=== PATIENT | female | born 1955 | race Caucasian/White ===

== ENCOUNTER 2018-03-15 12:51 | Inpatient (IN) ==
[2018-03-15 14:12] LABS: Basophils % 0.3 % (0.0-0.8); Eosinophils # 0.1 10*3/uL (0.0-0.87); Eosinophils % 0.9 % (0.00-10.9); Hematocrit 48.3 VOL% (35.7-47.0); Hemoglobin 16.3 GM/DL (12.0-16.0); Immature Granulocytes % 0.5 %; Immature Granulocytes Absolute 0.03 #; Lymphocytes # 1.2 10*3/uL (1.4-4.0); Lymphocytes % 18.3 % (21.3-54.2); Mean Corpuscular HGB Conc 33.7 GM/DL (32-36); Mean Corpuscular Hemoglobin 37 PG (27-34); Mean Platelet Volume 10.8 FL (9.6-12.0); Monocytes # 0.4 10*3/uL (0.11-0.8); Monocytes % 5.3 % (1.7-12.7); Neutrophils % 74.7 % (38.7-73.9); Platelet Count 130 T/CUMM (130-400); Red Blood Count 4.43 MC/CUMM (3.8-5.5); Red Cell Distribution Width 16.9 % (9.3-17.3); White Blood Count 6.6 T/CUMM (4-12)
[2018-03-15 14:38] LABS: Albumin 3.7 G/DL (3.4-5.0); Osmolality,Calculated 282.4 MOS/KG (273-304); Potassium 4.4 MMOL/L (3.5-5.1); Total Protein 7.1 G/DL (6.4-8.3)
[2018-03-15] MEDS ORDERED: ACETAMINOPHEN 325 MG TABLET PO PRN (15:52)
[2018-03-15] MEDS ORDERED: ONDANSETRON 4 MG/2 ML VIAL IV PRN (15:52)
[2018-03-15] MEDS ORDERED: NITROGLYCERIN SL 0.4 MG TABLET SL PRN (15:59)
[2018-03-15] MEDS ORDERED: ALBUTEROL 2.5 MG/3 ML NEB RESP TX PRN ×2 (15:59→16:24)
[2018-03-15] MEDS ORDERED: ENOXAPARIN 40 MG/0.4 ML SYRINGE SUBCUT SCH (16:00)
[2018-03-15] MEDS ORDERED: LEVOFLOXACIN INJ 500 MG in PREMIX 1 EACH IV SCH (16:00)
[2018-03-15 16:38] LABS: Apearance,Urine CLEAR (Clear); Bacteria,Urine Occasional /HPF (Few); Bilirubin,Urine Negative (Negative); Blood, Urine Small mg/dL (Negative); Glucose,Urine (UA) Negative (Negative); Hyaline Casts,Urine 1 /LPF (0-3); Ketones,Urine Negative (Negative); Nitrite,Urine Negative (Negative); Protein,Urine Negative; RBC,Urine <1 /HPF (0-4); Urine Color Straw (Yellow); Urine Specific Gravity 1.004 (1.001-1.035); Urine Urobilinogen < 2.0 EU/DL (0.2-1.0)
[2018-03-15] MEDS: ALBUTEROL/IPRATROPIUM 3 ML NEB RESP TX SCH ×4 (16:54→23:16)
[2018-03-15] MEDS: methylPREDNISolone SOD SUC 40 MG/1 ML VIAL IV SCH (17:16)
[2018-03-15 17:39] LABS: ABG Base Excess 2.5 MMOL/L (-2.5-2.5); ABG HCO3 26.4 MMOL/L (20-26); ABG Oxygen Saturation 90.4 % (95-100); ABG PH 7.415 (7.35-7.45); ABG PO2 61.2 MM HG (80-95)
[2018-03-15] MEDS: FUROSEMIDE 40 MG/4 ML VIAL IV SCH (18:44)
[2018-03-15] MEDS ORDERED: ALBUTEROL 2.5 MG/3 ML NEB RESP TX SCH (19:00)
[2018-03-15] MEDS: GABAPENTIN 600 MG TABLET PO SCH (20:46)
[2018-03-15] MEDS: MEGESTROL 40 MG TABLET PO SCH (20:47)
[2018-03-15] MEDS: ISOSORBIDE MONONITRATE 60 MG TABLET PO SCH (20:47)
[2018-03-16] MEDS: methylPREDNISolone SOD SUC 40 MG/1 ML VIAL IV SCH ×4 (00:15→23:27)
[2018-03-16] MEDS: ALBUTEROL/IPRATROPIUM 3 ML NEB RESP TX SCH ×6 (01:27→19:21)
[2018-03-16 04:58] LABS: Hematocrit 49.9 VOL% (35.7-47.0); Hemoglobin 16.2 GM/DL (12.0-16.0); Immature Granulocytes % 0.9 %; Immature Granulocytes Absolute 0.03 #; Lymphocytes # 0.2 10*3/uL (1.4-4.0); Lymphocytes % 7.6 % (21.3-54.2); Mean Corpuscular HGB Conc 32.5 GM/DL (32-36); Mean Corpuscular Hemoglobin 36 PG (27-34); Mean Corpuscular Volume 109.9 FL (87-102); Mean Platelet Volume 11.4 FL (9.6-12.0); Monocytes % 0.9 % (1.7-12.7); Neutrophils # 2.9 10*3/uL (1.4-7.4); Neutrophils % 90.6 % (38.7-73.9); Platelet Count 130 T/CUMM (130-400); Red Blood Count 4.54 MC/CUMM (3.8-5.5); Red Cell Distribution Width 16.9 % (9.3-17.3); White Blood Count 3.2 T/CUMM (4-12)
[2018-03-16 05:16] LABS: ABG Base Excess 1.8 MMOL/L (-2.5-2.5); ABG HCO3 26.4 MMOL/L (20-26); ABG Oxygen Saturation 87.7 % (95-100); ABG PCO2 41.6 MM HG (35-48); ABG PH 7.421 (7.35-7.45); ABG PO2 58.5 MM HG (80-95); ABG TCO2 27.7 MMOL/L (23-27)
[2018-03-16 05:26] LABS: Calcium 9.5 MG/DL (8.5-10.1); Osmolality,Calculated 286.5 MOS/KG (273-304); Potassium 3.8 MMOL/L (3.5-5.1)
[2018-03-16 05:36] LABS: Band Neutrophils 1 % (0-10); Lymphocytes 7 % (20-55); Segmented Neutrophils 91 % (50-85); Total Cells Counted 100
[2018-03-16 05:37] LABS: Macrocytosis 1+; Platelet Estimate Adequate
[2018-03-16] MEDS: ISOSORBIDE MONONITRATE 60 MG TABLET PO SCH ×2 (08:32→20:05)
[2018-03-16] MEDS: ASPIRIN EC 81 MG TABLET PO SCH (08:32)
[2018-03-16] MEDS: GABAPENTIN 600 MG TABLET PO SCH ×3 (08:33→20:03)
[2018-03-16] MEDS: PANTOPRAZOLE 40 MG TABLET PO SCH (08:34)
[2018-03-16] MEDS: POTASSIUM CHLORIDE 20 MEQ TABLET PO SCH (08:34)
[2018-03-16] MEDS: MEGESTROL 40 MG TABLET PO SCH ×2 (08:35→20:03)
[2018-03-16] MEDS: THEOPHYLLINE ER (24 HR) 200 MG CAPSULE PO SCH (08:35)
[2018-03-16] MEDS: CLOPIDOGREL 75 MG TABLET PO SCH (08:35)
[2018-03-16] MEDS: FUROSEMIDE 40 MG/4 ML VIAL IV SCH ×2 (08:36→15:04)
[2018-03-16] MEDS: DOXYCYCLINE HYCLATE 100 MG CAPSULE PO SCH (09:49)
[2018-03-16] MEDS ORDERED: LEVOFLOXACIN INJ 250 MG in PREMIX 1 EACH IV SCH (16:30)
[2018-03-17] MEDS: ALBUTEROL/IPRATROPIUM 3 ML NEB RESP TX SCH ×4 (01:58→19:19)
[2018-03-17 05:49] LABS: Basophils % 0.1 % (0.0-0.8); Hematocrit 46.7 VOL% (35.7-47.0); Hemoglobin 15.2 GM/DL (12.0-16.0); Immature Granulocytes % 0.8 %; Immature Granulocytes Absolute 0.07 #; Lymphocytes # 0.5 10*3/uL (1.4-4.0); Lymphocytes % 5.2 % (21.3-54.2); Mean Corpuscular HGB Conc 32.5 GM/DL (32-36); Mean Corpuscular Hemoglobin 35 PG (27-34); Mean Corpuscular Volume 108.9 FL (87-102); Mean Platelet Volume 11.1 FL (9.6-12.0); Monocytes # 0.2 10*3/uL (0.11-0.8); Monocytes % 2.4 % (1.7-12.7); Neutrophils # 8.5 10*3/uL (1.4-7.4); Neutrophils % 91.5 % (38.7-73.9); Platelet Count 133 T/CUMM (130-400); Red Blood Count 4.29 MC/CUMM (3.8-5.5); Red Cell Distribution Width 16.9 % (9.3-17.3); White Blood Count 9.3 T/CUMM (4-12)
[2018-03-17 06:22] LABS: Lymphocytes 1 % (20-55); Platelet Estimate Adequate; Polychromasia Few; Segmented Neutrophils 96 % (50-85); Total Cells Counted 100
[2018-03-17 06:23] LABS: Calcium 9.5 MG/DL (8.5-10.1); Potassium 4.5 MMOL/L (3.5-5.1)
[2018-03-17] MEDS: DOXYCYCLINE HYCLATE 100 MG CAPSULE PO SCH (10:50)
[2018-03-17] MEDS: POTASSIUM CHLORIDE 20 MEQ TABLET PO SCH (10:50)
[2018-03-17] MEDS: CLOPIDOGREL 75 MG TABLET PO SCH (10:50)
[2018-03-17] MEDS: ISOSORBIDE MONONITRATE 60 MG TABLET PO SCH ×2 (10:51→22:32)
[2018-03-17] MEDS: MEGESTROL 40 MG TABLET PO SCH ×2 (10:51→21:15)
[2018-03-17] MEDS: PANTOPRAZOLE 40 MG TABLET PO SCH (10:51)
[2018-03-17] MEDS: predniSONE 20 MG TABLET PO SCH (10:51)
[2018-03-17] MEDS: THEOPHYLLINE ER (24 HR) 200 MG CAPSULE PO SCH (10:51)
[2018-03-17] MEDS: GABAPENTIN 600 MG TABLET PO SCH ×3 (10:51→21:15)
[2018-03-17] MEDS: ASPIRIN EC 81 MG TABLET PO SCH (10:51)
[2018-03-17] MEDS: FUROSEMIDE 80 MG TABLET PO SCH ×3 (11:02→18:14)
[2018-03-17] MEDS: methylPREDNISolone SOD SUC 40 MG/1 ML VIAL IV SCH (11:33)
[2018-03-17] MEDS: FUROSEMIDE 40 MG/4 ML VIAL IV SCH (11:33)
[2018-03-18] MEDS: ALBUTEROL/IPRATROPIUM 3 ML NEB RESP TX SCH ×4 (01:28→19:25)
[2018-03-18] MEDS ORDERED: fentaNYL 75 MCG/HR PATCH TRANSDERM SCH (09:00)
[2018-03-18] MEDS: DOXYCYCLINE HYCLATE 100 MG CAPSULE PO SCH (09:59)
[2018-03-18] MEDS: PANTOPRAZOLE 40 MG TABLET PO SCH (09:59)
[2018-03-18] MEDS: predniSONE 20 MG TABLET PO SCH (09:59)
[2018-03-18] MEDS: GABAPENTIN 600 MG TABLET PO SCH ×3 (09:59→20:43)
[2018-03-18] MEDS: CLOPIDOGREL 75 MG TABLET PO SCH (09:59)
[2018-03-18] MEDS: FUROSEMIDE 80 MG TABLET PO SCH ×2 (09:59→17:47)
[2018-03-18] MEDS: ISOSORBIDE MONONITRATE 60 MG TABLET PO SCH ×2 (09:59→20:44)
[2018-03-18] MEDS: POTASSIUM CHLORIDE 20 MEQ TABLET PO SCH (10:00)
[2018-03-18] MEDS: THEOPHYLLINE ER (24 HR) 200 MG CAPSULE PO SCH (10:00)
[2018-03-18] MEDS: ASPIRIN EC 81 MG TABLET PO SCH (10:00)
[2018-03-18] MEDS: MEGESTROL 40 MG TABLET PO SCH ×2 (10:00→20:44)
[2018-03-18] MEDS: BUDESONIDE/FORMOTEROL 160-4.5 INHALER 6 GM INH SCH ×2 (10:04→20:45)
[2018-03-18] MEDS: DOCUSATE/SENNA 50-8.6 MG TABLET PO PRN (13:11)
[2018-03-19] MEDS: ALBUTEROL/IPRATROPIUM 3 ML NEB RESP TX SCH ×4 (01:45→19:28)
[2018-03-19 04:22] LABS: Basophils % 0.1 % (0.0-0.8); Hematocrit 49.9 VOL% (35.7-47.0); Hemoglobin 16.4 GM/DL (12.0-16.0); Immature Granulocytes % 0.6 %; Immature Granulocytes Absolute 0.05 #; Lymphocytes # 1.1 10*3/uL (1.4-4.0); Lymphocytes % 14.4 % (21.3-54.2); Mean Corpuscular HGB Conc 32.9 GM/DL (32-36); Mean Corpuscular Hemoglobin 36 PG (27-34); Mean Corpuscular Volume 109.2 FL (87-102); Mean Platelet Volume 10.9 FL (9.6-12.0); Monocytes # 0.5 10*3/uL (0.11-0.8); Monocytes % 5.8 % (1.7-12.7); Neutrophils # 6.2 10*3/uL (1.4-7.4); Neutrophils % 79.1 % (38.7-73.9); Platelet Count 129 T/CUMM (130-400); Red Blood Count 4.57 MC/CUMM (3.8-5.5); Red Cell Distribution Width 16.9 % (9.3-17.3); White Blood Count 7.8 T/CUMM (4-12)
[2018-03-19 04:47] LABS: Calcium 9.3 MG/DL (8.5-10.1); Osmolality,Calculated 289.8 MOS/KG (273-304); Potassium 4.1 MMOL/L (3.5-5.1)
[2018-03-19] MEDS: LACTULOSE 20 GM/30 ML UDCUP PO PRN (08:52)
[2018-03-19] MEDS: THEOPHYLLINE ER (24 HR) 200 MG CAPSULE PO SCH (08:52)
[2018-03-19] MEDS: MEGESTROL 40 MG TABLET PO SCH ×2 (08:52→21:03)
[2018-03-19] MEDS: CLOPIDOGREL 75 MG TABLET PO SCH (08:52)
[2018-03-19] MEDS: DOXYCYCLINE HYCLATE 100 MG CAPSULE PO SCH (08:52)
[2018-03-19] MEDS: GABAPENTIN 600 MG TABLET PO SCH ×3 (08:53→21:03)
[2018-03-19] MEDS: POTASSIUM CHLORIDE 20 MEQ TABLET PO SCH (08:53)
[2018-03-19] MEDS: DOCUSATE/SENNA 50-8.6 MG TABLET PO PRN (08:53)
[2018-03-19] MEDS: FUROSEMIDE 80 MG TABLET PO SCH ×2 (08:53→15:38)
[2018-03-19] MEDS: PANTOPRAZOLE 40 MG TABLET PO SCH (08:53)
[2018-03-19] MEDS: ISOSORBIDE MONONITRATE 60 MG TABLET PO SCH ×2 (08:53→21:03)
[2018-03-19] MEDS: ASPIRIN EC 81 MG TABLET PO SCH (08:54)
[2018-03-19] MEDS: methylPREDNISolone SOD SUC 40 MG/1 ML VIAL IV SCH ×2 (08:54→21:04)
[2018-03-19] MEDS: BUDESONIDE/FORMOTEROL 160-4.5 INHALER 6 GM INH SCH ×2 (15:38→21:08)
[2018-03-20] MEDS: ALBUTEROL/IPRATROPIUM 3 ML NEB RESP TX SCH ×2 (00:36→07:10)
[2018-03-20] MEDS: LACTULOSE 20 GM/30 ML UDCUP PO PRN (08:37)
[2018-03-20] MEDS: PANTOPRAZOLE 40 MG TABLET PO SCH (08:38)
[2018-03-20] MEDS: DOXYCYCLINE HYCLATE 100 MG CAPSULE PO SCH (08:38)
[2018-03-20] MEDS: THEOPHYLLINE ER (24 HR) 200 MG CAPSULE PO SCH (08:38)
[2018-03-20] MEDS: GABAPENTIN 600 MG TABLET PO SCH (08:38)
[2018-03-20] MEDS: POTASSIUM CHLORIDE 20 MEQ TABLET PO SCH (08:38)
[2018-03-20] MEDS: MEGESTROL 40 MG TABLET PO SCH (08:39)
[2018-03-20] MEDS: ISOSORBIDE MONONITRATE 60 MG TABLET PO SCH (08:39)
[2018-03-20] MEDS: CLOPIDOGREL 75 MG TABLET PO SCH (08:39)
[2018-03-20] MEDS: ASPIRIN EC 81 MG TABLET PO SCH (08:39)
[2018-03-20] MEDS: methylPREDNISolone SOD SUC 40 MG/1 ML VIAL IV SCH (08:41)
[2018-03-20] MEDS: FUROSEMIDE 80 MG TABLET PO SCH (08:41)
[2018-03-20] MEDS: BUDESONIDE/FORMOTEROL 160-4.5 INHALER 6 GM INH SCH (08:45)
[2018-03-20 13:07] VITALS: BP 124/60
== END 2018-03-20 14:38 | disposition hospice, home (50) | DRG 133 ==
LOC: EDBD → EDUNIT# → N.ED 12:51 → N.EDINP 15:52 → SUATTDRO 15:52 → N.ICU 17:03 → N.5E 03-16 12:29
PROVIDERS: ADMIT Internal Medicine Geriatric Medicine; ATTEND Internal Medicine

== ENCOUNTER 2018-08-19 16:49 | Inpatient (IN) ==
[2018-08-19] MEDS ORDERED: NOREPINEPHRINE 4 MG/4 ML VIAL IV ONE (20:35)
[2018-08-19] MEDS ORDERED: PROPOFOL 1,000 MG/100 ML BOTTLE IV ONE (20:36)
[2018-08-19] MEDS: NOREPINEPHRINE 8 MG in SODIUM CHLORIDE 0.9% 242 ML IV PRN (20:57)
[2018-08-19 21:12] LABS: Basophils # 0.1 10*3/uL (0.0-0.2); Basophils % 0.5 % (0.0-0.8); Eosinophils % 0.1 % (0.00-10.9); Hematocrit 47.9 VOL% (35.7-47.0); Immature Granulocytes % 0.8 %; Immature Granulocytes Absolute 0.08 #; Lymphocytes # 1.8 10*3/uL (1.4-4.0); Lymphocytes % 17.5 % (21.3-54.2); Mean Corpuscular HGB Conc 31.3 GM/DL (32-36); Mean Corpuscular Hemoglobin 34 PG (27-34); Mean Corpuscular Volume 108.9 FL (87-102); Mean Platelet Volume 10.9 FL (9.6-12.0); Monocytes # 0.7 10*3/uL (0.11-0.8); Monocytes % 6.9 % (1.7-12.7); NRBC # 0.03 10*3/uL; Neutrophils # 7.8 10*3/uL (1.4-7.4); Neutrophils % 74.2 % (38.7-73.9); Platelet Count 138 T/CUMM (130-400); Red Cell Distribution Width 16.3 % (9.3-17.3); White Blood Count 10.5 T/CUMM (4-12)
[2018-08-19] MEDS ORDERED: SODIUM CHLORIDE 0.9% 500 ML IV ONE (21:16)
[2018-08-19] MEDS: PROPOFOL 1,000 MG/100 ML BOTTLE IV SCH (21:28)
[2018-08-19 21:36] LABS: Alanine Aminotransferase 34 U/L (13-56); Albumin 3.2 G/DL (3.4-5.0); Alkaline Phosphatase 170 U/L (45-117); Aspartate Amino Transferase 62 U/L (0-37); Blood Urea Nitrogen 32 MG/DL (7-18); Calcium 7.4 MG/DL (8.5-10.1); Glucose 146 MG/DL (74-106); Osmolality,Calculated 290.3 MOS/KG (273-304); Potassium 3.6 MMOL/L (3.5-5.1); Sodium 141 MMOL/L (136-145); Total Protein 6.5 G/DL (6.4-8.3)
[2018-08-19 21:38] LABS: Troponin I 0.371 NG/ML (0.00-0.045)
[2018-08-19] MEDS: MEROPENEM 1,000 MG in SODIUM CHLORIDE 0.9% 100 ML IV SCH (22:13)
[2018-08-19 22:25] LABS: Apearance,Urine CLEAR (Clear); Bacteria,Urine Occasional /HPF (Few); Bilirubin,Urine Negative (Negative); Blood, Urine Small mg/dL (Negative); Glucose,Urine (UA) Negative (Negative); Ketones,Urine Negative (Negative); Mucus,Urine Occasional /LPF (Occasional); Nitrite,Urine Negative (Negative); Protein,Urine Negative; RBC,Urine 2 /HPF (0-4); Squamous Epithelial Cell,Urine Occasional /HPF (0-10); Urine Color Straw (Yellow); Urine Specific Gravity 1.012 (1.001-1.035); Urine Urobilinogen < 2.0 EU/DL (0.2-1.0); WBC,Urine 5 /HPF (0-6)
[2018-08-19 22:28] LABS: Allen Test Positive; Pt O2 Delivery Device Ventilator
[2018-08-19] MEDS: VANCOMYCIN INJ 1,500 MG in SODIUM CHLORIDE 0.9% 500 ML IV SCH (22:33)
[2018-08-19] MEDS: ALBUTEROL/IPRATROPIUM 3 ML NEB RESP TX SCH (23:10)
[2018-08-19 23:48] LABS: ABG Base Excess -6.5 MMOL/L (-2.5-2.5); ABG HCO3 18.9 MMOL/L (20-26); ABG Oxygen Saturation 81.2 % (95-100); ABG PCO2 51.6 MM HG (35-48); ABG PH 7.239 (7.35-7.45); ABG PO2 53.3 MM HG (80-95); ABG TCO2 19.1 MMOL/L (23-27)
[2018-08-20] MEDS ORDERED: SODIUM BICARBONATE 50 MEQ/50 ML VIAL IV ONE (00:02)
[2018-08-20] MEDS ORDERED: SODIUM CHLORIDE 0.9% 250 ML IV ONE (01:00)
[2018-08-20 01:06] LABS: CKMB % 5.3 %
[2018-08-20 01:07] LABS: Troponin I 0.472 NG/ML (0.00-0.045)
[2018-08-20] MEDS ORDERED: NOREPINEPHRINE 4 MG/4 ML VIAL IV ONE (01:07)
[2018-08-20] MEDS: methylPREDNISolone SOD SUC 40 MG/1 ML VIAL IV SCH ×5 (01:21→18:55)
[2018-08-20] MEDS: NOREPINEPHRINE 8 MG in SODIUM CHLORIDE 0.9% 242 ML IV PRN ×3 (02:39→18:54)
[2018-08-20] MEDS: ALBUTEROL/IPRATROPIUM 3 ML NEB RESP TX SCH ×6 (03:10→23:44)
[2018-08-20 03:52] LABS: Basophils # 0.1 10*3/uL (0.0-0.2); Basophils % 0.4 % (0.0-0.8); Eosinophils % 0.1 % (0.00-10.9); Hematocrit 45.7 VOL% (35.7-47.0); Hemoglobin 14.7 GM/DL (12.0-16.0); Immature Granulocytes % 0.8 %; Immature Granulocytes Absolute 0.11 #; Lymphocytes # 0.6 10*3/uL (1.4-4.0); Lymphocytes % 4.3 % (21.3-54.2); Mean Corpuscular HGB Conc 32.2 GM/DL (32-36); Mean Corpuscular Hemoglobin 34 PG (27-34); Mean Platelet Volume 10.8 FL (9.6-12.0); Monocytes # 0.7 10*3/uL (0.11-0.8); Monocytes % 4.8 % (1.7-12.7); NRBC # 0.04 10*3/uL; Neutrophils # 12.4 10*3/uL (1.4-7.4); Neutrophils % 89.6 % (38.7-73.9); Platelet Count 177 T/CUMM (130-400); Red Blood Count 4.27 MC/CUMM (3.8-5.5); Red Cell Distribution Width 16.3 % (9.3-17.3); White Blood Count 13.9 T/CUMM (4-12)
[2018-08-20 04:09] LABS: Calcium 8.1 MG/DL (8.5-10.1); Osmolality,Calculated 288.1 MOS/KG (273-304); Potassium 3.5 MMOL/L (3.5-5.1)
[2018-08-20 04:23] LABS: ABG Base Excess -2.4 MMOL/L (-2.5-2.5); ABG HCO3 22.4 MMOL/L (20-26); ABG Oxygen Saturation 97.6 % (95-100); ABG PCO2 41.4 MM HG (35-48); ABG PH 7.355 (7.35-7.45); ABG TCO2 19.5 MMOL/L (23-27); Allen Test Positive; Pt O2 Delivery Device Ventilator
[2018-08-20 04:25] LABS: Band Neutrophils 1 % (0-10); Eosinophils 1 % (0-10); Lymphocytes 3 % (20-55); Segmented Neutrophils 93 % (50-85); Total Cells Counted 100
[2018-08-20 04:26] LABS: Platelet Estimate Normal; Polychromasia Few
[2018-08-20] MEDS ORDERED: POTASSIUM CHLORIDE RIDER 10 MEQ in PREMIX 1 EACH IV PRN (05:49)
[2018-08-20] MEDS ORDERED: MAGNESIUM SULF RIDER 2 GM in PREMIX 1 EACH IV PRN (05:49)
[2018-08-20] MEDS ORDERED: MAGNESIUM SULF RIDER 4 GM in PREMIX 1 EACH IV PRN (05:49)
[2018-08-20] MEDS: POTASSIUM CHLORIDE RIDER 20 MEQ in PREMIX 1 EACH IV PRN (06:18)
[2018-08-20] MEDS: PROPOFOL 1,000 MG/100 ML BOTTLE IV SCH ×3 (08:00→20:42)
[2018-08-20] MEDS: MEROPENEM 1,000 MG in SODIUM CHLORIDE 0.9% 100 ML IV SCH ×2 (09:30→21:40)
[2018-08-20] MEDS: fentaNYL 25 MCG/HR PATCH TRANSDERM SCH (14:18)
[2018-08-20] MEDS: CLOPIDOGREL 75 MG TABLET PO SCH (14:18)
[2018-08-21] MEDS: VANCOMYCIN INJ 1,500 MG in SODIUM CHLORIDE 0.9% 500 ML IV SCH ×2 (01:00→22:24)
[2018-08-21] MEDS: methylPREDNISolone SOD SUC 40 MG/1 ML VIAL IV SCH ×4 (01:48→19:00)
[2018-08-21] MEDS: PROPOFOL 1,000 MG/100 ML BOTTLE IV SCH ×5 (02:00→20:59)
[2018-08-21] MEDS: ALBUTEROL/IPRATROPIUM 3 ML NEB RESP TX SCH ×6 (03:45→23:08)
[2018-08-21 05:23] LABS: Basophils % 0.1 % (0.0-0.8); Hematocrit 44.2 VOL% (35.7-47.0); Hemoglobin 14.4 GM/DL (12.0-16.0); Immature Granulocytes % 0.5 %; Immature Granulocytes Absolute 0.05 #; Lymphocytes # 0.4 10*3/uL (1.4-4.0); Lymphocytes % 4.4 % (21.3-54.2); Mean Corpuscular HGB Conc 32.6 GM/DL (32-36); Mean Corpuscular Hemoglobin 35 PG (27-34); Mean Corpuscular Volume 106.5 FL (87-102); Mean Platelet Volume 11.6 FL (9.6-12.0); Monocytes # 0.3 10*3/uL (0.11-0.8); Monocytes % 3.1 % (1.7-12.7); NRBC # 0.02 10*3/uL; Neutrophils % 91.9 % (38.7-73.9); Platelet Count 172 T/CUMM (130-400); Red Blood Count 4.15 MC/CUMM (3.8-5.5); Red Cell Distribution Width 16.2 % (9.3-17.3); White Blood Count 9.8 T/CUMM (4-12)
[2018-08-21 05:45] LABS: Calcium 9.6 MG/DL (8.5-10.1); Osmolality,Calculated 294.8 MOS/KG (273-304)
[2018-08-21 05:56] LABS: Lymphocytes 2 % (20-55); Segmented Neutrophils 96 % (50-85)
[2018-08-21 05:57] LABS: Platelet Estimate Normal
[2018-08-21 05:58] LABS: Total Cells Counted 100
[2018-08-21 07:59] LABS: ABG Base Excess 0.9 MMOL/L (-2.5-2.5); ABG HCO3 25.2 MMOL/L (20-26); ABG Oxygen Saturation 99.6 % (95-100); ABG PCO2 39.4 MM HG (35-48); ABG PH 7.416 (7.35-7.45); ABG TCO2 21.4 MMOL/L (23-27); Allen Test Positive; Pt O2 Delivery Device Ventilator
[2018-08-21] MEDS: CLOPIDOGREL 75 MG TABLET PO SCH (08:49)
[2018-08-21] MEDS: MEROPENEM 1,000 MG in SODIUM CHLORIDE 0.9% 100 ML IV SCH ×2 (09:44→22:24)
[2018-08-21] MEDS: NOREPINEPHRINE 8 MG in SODIUM CHLORIDE 0.9% 242 ML IV PRN (12:29)
[2018-08-22] MEDS: methylPREDNISolone SOD SUC 40 MG/1 ML VIAL IV SCH ×4 (01:21→20:25)
[2018-08-22] MEDS: PROPOFOL 1,000 MG/100 ML BOTTLE IV SCH ×4 (01:21→20:24)
[2018-08-22] MEDS: ALBUTEROL/IPRATROPIUM 3 ML NEB RESP TX SCH ×6 (02:58→23:47)
[2018-08-22 03:40] LABS: Allen Test Positive; Pt O2 Delivery Device Ventilator
[2018-08-22 03:41] LABS: ABG Base Excess -1.1 MMOL/L (-2.5-2.5); ABG HCO3 22.9 MMOL/L (20-26); ABG Oxygen Saturation 98.6 % (95-100); ABG PCO2 36.6 MM HG (35-48); ABG PH 7.415 (7.35-7.45); ABG PO2 126.5 MM HG (80-95); ABG TCO2 24.1 MMOL/L (23-27)
[2018-08-22 04:12] LABS: Hematocrit 45.1 VOL% (35.7-47.0); Hemoglobin 14.6 GM/DL (12.0-16.0); Immature Granulocytes % 0.8 %; Immature Granulocytes Absolute 0.08 #; Lymphocytes # 0.3 10*3/uL (1.4-4.0); Lymphocytes % 3.2 % (21.3-54.2); Mean Corpuscular HGB Conc 32.4 GM/DL (32-36); Mean Corpuscular Hemoglobin 34 PG (27-34); Mean Corpuscular Volume 106.1 FL (87-102); Mean Platelet Volume 11.2 FL (9.6-12.0); Monocytes # 0.4 10*3/uL (0.11-0.8); Monocytes % 3.6 % (1.7-12.7); NRBC # 0.04 10*3/uL; Neutrophils # 9.7 10*3/uL (1.4-7.4); Neutrophils % 92.4 % (38.7-73.9); Platelet Count 130 T/CUMM (130-400); Red Blood Count 4.25 MC/CUMM (3.8-5.5); Red Cell Distribution Width 17.1 % (9.3-17.3); White Blood Count 10.5 T/CUMM (4-12)
[2018-08-22 04:26] LABS: Calcium 9.4 MG/DL (8.5-10.1); Osmolality,Calculated 298.7 MOS/KG (273-304); Potassium 3.7 MMOL/L (3.5-5.1)
[2018-08-22] MEDS: POTASSIUM CHLORIDE RIDER 20 MEQ in PREMIX 1 EACH IV PRN (05:34)
[2018-08-22 05:52] LABS: Platelet Estimate Adequate; Polychromasia Few; Segmented Neutrophils 100 % (50-85); Total Cells Counted 100
[2018-08-22] MEDS: CLOPIDOGREL 75 MG TABLET PO SCH (09:05)
[2018-08-22] MEDS: MEROPENEM 1,000 MG in SODIUM CHLORIDE 0.9% 100 ML IV SCH ×2 (10:29→22:13)
[2018-08-22 13:54] LABS: ABG HCO3 25.3 MMOL/L (20-26); ABG Oxygen Saturation 99.2 % (95-100); ABG PH 7.413 (7.35-7.45); ABG TCO2 21.6 MMOL/L (23-27); Allen Test Positive; Pt O2 Delivery Device Ventilator
[2018-08-22 14:40] LABS: Albumin 3.1 G/DL (3.4-5.0); Bilirubin,Total 0.8 MG/DL (0.2-1.0); Calcium 9.6 MG/DL (8.5-10.1); Potassium 4.1 MMOL/L (3.5-5.1); Total Protein 6.3 G/DL (6.4-8.3)
[2018-08-22] MEDS: VANCOMYCIN INJ 1,500 MG in SODIUM CHLORIDE 0.9% 500 ML IV SCH (22:09)
[2018-08-23] MEDS: methylPREDNISolone SOD SUC 40 MG/1 ML VIAL IV SCH ×4 (01:17→20:26)
[2018-08-23] MEDS: PROPOFOL 1,000 MG/100 ML BOTTLE IV SCH (02:38)
[2018-08-23] MEDS: ALBUTEROL/IPRATROPIUM 3 ML NEB RESP TX SCH ×5 (03:32→19:28)
[2018-08-23 03:58] LABS: ABG Base Excess 2.3 MMOL/L (-2.5-2.5); ABG HCO3 26.4 MMOL/L (20-26); ABG Oxygen Saturation 99.4 % (95-100); ABG PCO2 33.4 MM HG (35-48); ABG PH 7.483 (7.35-7.45); ABG TCO2 21.1 MMOL/L (23-27); Allen Test Positive; Pt O2 Delivery Device Ventilator
[2018-08-23] MEDS: MIDAZOLAM 100 MG in SODIUM CHLORIDE 0.9% 80 ML IV PRN (09:24)
[2018-08-23] MEDS ORDERED: GLUCAGON 1 MG VIAL IM PRN (09:56)
[2018-08-23] MEDS ORDERED: DEXTROSE 50% 25 GM/50 ML SYRINGE IV PRN (09:56)
[2018-08-23] MEDS: fentaNYL 25 MCG/HR PATCH TRANSDERM SCH (10:30)
[2018-08-23] MEDS: MEROPENEM 1,000 MG in SODIUM CHLORIDE 0.9% 100 ML IV SCH ×2 (10:38→21:23)
[2018-08-23] MEDS: CLOPIDOGREL 75 MG TABLET PO SCH (10:38)
[2018-08-23] MEDS: fentaNYL INJ 1,250 MCG in SODIUM CHLORIDE 0.9% 225 ML IV PRN (10:42)
[2018-08-23] MEDS: VANCOMYCIN INJ 1,250 MG in SODIUM CHLORIDE 0.9% 250 ML IV SCH (11:39)
[2018-08-23] MEDS: INSULIN REGULAR 100 UNIT/ML SUBCUT SCH ×2 (11:51→18:30)
[2018-08-23 14:53] LABS: Hematocrit 45.3 VOL% (35.7-47.0); Hemoglobin 14.1 GM/DL (12.0-16.0); Immature Granulocytes % 1.1 %; Immature Granulocytes Absolute 0.07 #; Lymphocytes # 0.3 10*3/uL (1.4-4.0); Mean Corpuscular HGB Conc 31.1 GM/DL (32-36); Mean Corpuscular Hemoglobin 34 PG (27-34); Mean Platelet Volume 11.1 FL (9.6-12.0); Monocytes # 0.2 10*3/uL (0.11-0.8); Monocytes % 3.6 % (1.7-12.7); NRBC # 0.03 10*3/uL; Neutrophils % 90.3 % (38.7-73.9); Platelet Count 80 T/CUMM (130-400); Red Blood Count 4.12 MC/CUMM (3.8-5.5); Red Cell Distribution Width 17.3 % (9.3-17.3); White Blood Count 6.6 T/CUMM (4-12)
[2018-08-23 15:05] LABS: Calcium 9.1 MG/DL (8.5-10.1); Osmolality,Calculated 298.8 MOS/KG (273-304); Potassium 4.8 MMOL/L (3.5-5.1)
[2018-08-23 15:24] LABS: Platelet Estimate Decreased
[2018-08-23] MEDS ORDERED: FUROSEMIDE 40 MG/4 ML VIAL IV ONE (15:28)
[2018-08-23] MEDS: ASPIRIN CHEW 81 MG TABLET PO SCH (16:18)
[2018-08-23] MEDS: ROSUVASTATIN 20 MG TABLET PO SCH (20:26)
[2018-08-24] MEDS: ALBUTEROL/IPRATROPIUM 3 ML NEB RESP TX SCH ×7 (00:06→22:55)
[2018-08-24] MEDS: INSULIN REGULAR 100 UNIT/ML SUBCUT SCH ×4 (00:49→17:42)
[2018-08-24] MEDS: methylPREDNISolone SOD SUC 40 MG/1 ML VIAL IV SCH ×4 (00:49→22:02)
[2018-08-24] MEDS: fentaNYL INJ 1,250 MCG in SODIUM CHLORIDE 0.9% 225 ML IV PRN (01:55)
[2018-08-24 04:31] LABS: ABG Base Excess 1.1 MMOL/L (-2.5-2.5); ABG HCO3 25.1 MMOL/L (20-26); ABG Oxygen Saturation 87.5 % (95-100); ABG PCO2 38.7 MM HG (35-48); ABG PH 7.424 (7.35-7.45); ABG PO2 57.3 MM HG (80-95); ABG TCO2 21.2 MMOL/L (23-27); Allen Test Positive; Pt O2 Delivery Device Ventilator
[2018-08-24 04:40] LABS: Calcium 8.8 MG/DL (8.5-10.1); Osmolality,Calculated 295.3 MOS/KG (273-304); Potassium 5.2 MMOL/L (3.5-5.1)
[2018-08-24 04:43] LABS: Basophils % 0.1 % (0.0-0.8); Hematocrit 47.7 VOL% (35.7-47.0); Hemoglobin 15.2 GM/DL (12.0-16.0); Immature Granulocytes % 0.7 %; Immature Granulocytes Absolute 0.05 #; Lymphocytes # 0.4 10*3/uL (1.4-4.0); Lymphocytes % 6.1 % (21.3-54.2); Mean Corpuscular HGB Conc 31.9 GM/DL (32-36); Mean Corpuscular Hemoglobin 35 PG (27-34); Mean Corpuscular Volume 108.9 FL (87-102); Mean Platelet Volume 12.4 FL (9.6-12.0); Monocytes # 0.4 10*3/uL (0.11-0.8); Monocytes % 5.5 % (1.7-12.7); NRBC # 0.02 10*3/uL; Neutrophils # 6.2 10*3/uL (1.4-7.4); Neutrophils % 87.6 % (38.7-73.9); Red Blood Count 4.38 MC/CUMM (3.8-5.5); Red Cell Distribution Width 17.3 % (9.3-17.3); White Blood Count 7.1 T/CUMM (4-12)
[2018-08-24 04:45] LABS: Platelet Count 74 T/CUMM (130-400)
[2018-08-24 04:47] LABS: Bilirubin,Direct 0.18 MG/DL (0.0-0.20); Bilirubin,Indirect 0.7 MG/DL (0.0-1.0); Bilirubin,Total 0.9 MG/DL (0.2-1.0); Total Protein 6.3 G/DL (6.4-8.3)
[2018-08-24 04:59] LABS: Prealbumin 31.8 MG/DL (20-40)
[2018-08-24 05:04] LABS: Platelet Estimate Decreased
[2018-08-24] MEDS ORDERED: FUROSEMIDE 40 MG/4 ML VIAL IV ONE (08:49)
[2018-08-24] MEDS: MEROPENEM 1,000 MG in SODIUM CHLORIDE 0.9% 100 ML IV SCH ×2 (09:09→22:03)
[2018-08-24] MEDS: CLOPIDOGREL 75 MG TABLET PO SCH (09:09)
[2018-08-24] MEDS: ASPIRIN CHEW 81 MG TABLET PO SCH (09:09)
[2018-08-24 10:15] LABS: ABG HCO3 26.1 MMOL/L (20-26); ABG PH 7.428 (7.35-7.45); ABG PO2 85.9 MM HG (80-95); ABG TCO2 22.1 MMOL/L (23-27); Pt O2 Delivery Device Ventilator
[2018-08-24] MEDS: VANCOMYCIN INJ 1,250 MG in SODIUM CHLORIDE 0.9% 250 ML IV SCH (11:02)
[2018-08-24] MEDS: ROSUVASTATIN 20 MG TABLET PO SCH (22:02)
[2018-08-24] MEDS: FUROSEMIDE 40 MG/4 ML VIAL IV SCH (22:02)
[2018-08-24] MEDS: MIDAZOLAM 100 MG in SODIUM CHLORIDE 0.9% 80 ML IV PRN (22:03)
[2018-08-25] MEDS: fentaNYL INJ 1,250 MCG in SODIUM CHLORIDE 0.9% 225 ML IV PRN ×2 (00:45→18:21)
[2018-08-25] MEDS: INSULIN REGULAR 100 UNIT/ML SUBCUT SCH ×5 (01:01→23:25)
[2018-08-25] MEDS: methylPREDNISolone SOD SUC 40 MG/1 ML VIAL IV SCH ×5 (02:16→23:32)
[2018-08-25 02:57] LABS: Allen Test Positive; Pt O2 Delivery Device Ventilator
[2018-08-25 03:04] LABS: ABG PH 7.499 (7.35-7.45)
[2018-08-25 03:05] LABS: ABG HCO3 27.8 MMOL/L (20-26); ABG TCO2 22.1 MMOL/L (23-27)
[2018-08-25 03:06] LABS: ABG Base Excess 3.8 MMOL/L (-2.5-2.5); ABG Oxygen Saturation 98.6 % (95-100)
[2018-08-25] MEDS: ALBUTEROL/IPRATROPIUM 3 ML NEB RESP TX SCH ×6 (03:15→23:06)
[2018-08-25] MEDS: ASPIRIN CHEW 81 MG TABLET PO SCH (09:08)
[2018-08-25] MEDS: CLOPIDOGREL 75 MG TABLET PO SCH (09:08)
[2018-08-25] MEDS: FUROSEMIDE 40 MG/4 ML VIAL IV SCH ×2 (09:10→21:06)
[2018-08-25] MEDS: MEROPENEM 1,000 MG in SODIUM CHLORIDE 0.9% 100 ML IV SCH ×2 (09:12→21:05)
[2018-08-25 09:13] LABS: Hematocrit 46.2 VOL% (35.7-47.0); Hemoglobin 14.7 GM/DL (12.0-16.0); Immature Granulocytes % 1.2 %; Lymphocytes # 0.5 10*3/uL (1.4-4.0); Lymphocytes % 5.7 % (21.3-54.2); Mean Corpuscular HGB Conc 31.8 GM/DL (32-36); Mean Corpuscular Hemoglobin 34 PG (27-34); Mean Corpuscular Volume 107.2 FL (87-102); Mean Platelet Volume 10.9 FL (9.6-12.0); Monocytes # 0.5 10*3/uL (0.11-0.8); Monocytes % 5.4 % (1.7-12.7); NRBC # 0.02 10*3/uL; Neutrophils # 7.3 10*3/uL (1.4-7.4); Neutrophils % 87.7 % (38.7-73.9); Platelet Count 68 T/CUMM (130-400); Red Blood Count 4.31 MC/CUMM (3.8-5.5); Red Cell Distribution Width 17.4 % (9.3-17.3); White Blood Count 8.4 T/CUMM (4-12)
[2018-08-25 09:21] LABS: Calcium 8.1 MG/DL (8.5-10.1); Osmolality,Calculated 300.1 MOS/KG (273-304); Potassium 4.6 MMOL/L (3.5-5.1)
[2018-08-25 10:20] LABS: Macrocytosis 1+; Platelet Estimate Decreased
[2018-08-25] MEDS: VANCOMYCIN INJ 1,250 MG in SODIUM CHLORIDE 0.9% 250 ML IV SCH (11:19)
[2018-08-25 11:55] LABS: % Iron Saturation 30.1 % (18-50)
[2018-08-25 13:05] LABS: Folate 10.9 NG/ML (5.4-24.0)
[2018-08-25] MEDS: ROSUVASTATIN 20 MG TABLET PO SCH (21:06)
[2018-08-26] MEDS: ALBUTEROL/IPRATROPIUM 3 ML NEB RESP TX SCH ×5 (03:01→19:24)
[2018-08-26 04:40] LABS: ABG Base Excess 5.6 MMOL/L (-2.5-2.5); ABG HCO3 29.3 MMOL/L (20-26); ABG PCO2 39.8 MM HG (35-48); ABG PH 7.478 (7.35-7.45); ABG TCO2 24.9 MMOL/L (23-27); Allen Test Positive; Pt O2 Delivery Device Ventilator
[2018-08-26 05:09] LABS: Basophils % 0.3 % (0.0-0.8); Eosinophils % 0.1 % (0.00-10.9); Hematocrit 45.2 VOL% (35.7-47.0); Hemoglobin 14.5 GM/DL (12.0-16.0); Immature Granulocytes % 1.1 %; Immature Granulocytes Absolute 0.11 #; Lymphocytes # 0.5 10*3/uL (1.4-4.0); Lymphocytes % 4.7 % (21.3-54.2); Mean Corpuscular HGB Conc 32.1 GM/DL (32-36); Mean Corpuscular Hemoglobin 34 PG (27-34); Mean Corpuscular Volume 106.9 FL (87-102); Mean Platelet Volume 13.1 FL (9.6-12.0); Monocytes # 0.4 10*3/uL (0.11-0.8); Neutrophils # 9.2 10*3/uL (1.4-7.4); Neutrophils % 89.8 % (38.7-73.9); Platelet Count 81 T/CUMM (130-400); Red Blood Count 4.23 MC/CUMM (3.8-5.5); Red Cell Distribution Width 17.3 % (9.3-17.3); White Blood Count 10.3 T/CUMM (4-12)
[2018-08-26] MEDS: INSULIN REGULAR 100 UNIT/ML SUBCUT SCH ×4 (05:32→23:42)
[2018-08-26] MEDS: fentaNYL INJ 1,250 MCG in SODIUM CHLORIDE 0.9% 225 ML IV PRN (05:43)
[2018-08-26 05:47] LABS: Free T4 (Free Thyroxine) 1.07 NG/DL (0.76-1.46); Thyroid Stimulating Hormone 0.923 uIU/ml (0.358-3.74)
[2018-08-26 06:11] LABS: Lymphocytes 6 % (20-55); Segmented Neutrophils 90 % (50-85); Total Cells Counted 100
[2018-08-26 06:12] LABS: Anisocytosis 1+; Hypochromasia Slight; Macrocytosis Slight; Microcytosis Slight; Platelet Estimate Decreased
[2018-08-26 06:15] LABS: Osmolality,Calculated 296.4 MOS/KG (273-304); Potassium 4.7 MMOL/L (3.5-5.1)
[2018-08-26] MEDS: MIDAZOLAM 100 MG in SODIUM CHLORIDE 0.9% 80 ML IV PRN (08:00)
[2018-08-26] MEDS: methylPREDNISolone SOD SUC 40 MG/1 ML VIAL IV SCH ×3 (09:16→23:39)
[2018-08-26] MEDS: FUROSEMIDE 40 MG/4 ML VIAL IV SCH ×2 (09:16→20:41)
[2018-08-26] MEDS: ASPIRIN CHEW 81 MG TABLET PO SCH (09:16)
[2018-08-26] MEDS: CLOPIDOGREL 75 MG TABLET PO SCH (09:16)
[2018-08-26] MEDS: VANCOMYCIN INJ 1,250 MG in SODIUM CHLORIDE 0.9% 250 ML IV SCH (10:08)
[2018-08-26] MEDS: MEROPENEM 1,000 MG in SODIUM CHLORIDE 0.9% 100 ML IV SCH ×2 (10:11→21:02)
[2018-08-26] MEDS: ROSUVASTATIN 20 MG TABLET PO SCH (20:41)
[2018-08-27] MEDS: ALBUTEROL/IPRATROPIUM 3 ML NEB RESP TX SCH ×7 (00:22→23:45)
[2018-08-27] MEDS: fentaNYL INJ 1,250 MCG in SODIUM CHLORIDE 0.9% 225 ML IV PRN (04:15)
[2018-08-27] MEDS: MIDAZOLAM 100 MG in SODIUM CHLORIDE 0.9% 80 ML IV PRN ×2 (04:15→23:04)
[2018-08-27 04:53] LABS: ABG HCO3 29.9 MMOL/L (20-26); ABG PCO2 34.4 MM HG (35-48); ABG PH 7.526 (7.35-7.45); ABG TCO2 23.5 MMOL/L (23-27); Allen Test Positive; Pt O2 Delivery Device Ventilator
[2018-08-27] MEDS: INSULIN REGULAR 100 UNIT/ML SUBCUT SCH ×4 (05:29→23:21)
[2018-08-27 05:45] LABS: Basophils % 0.2 % (0.0-0.8); Eosinophils % 0.1 % (0.00-10.9); Hematocrit 47.6 VOL% (35.7-47.0); Hemoglobin 15.5 GM/DL (12.0-16.0); Immature Granulocytes % 1.3 %; Immature Granulocytes Absolute 0.21 #; Lymphocytes # 0.5 10*3/uL (1.4-4.0); Lymphocytes % 2.9 % (21.3-54.2); Mean Corpuscular HGB Conc 32.6 GM/DL (32-36); Mean Corpuscular Hemoglobin 35 PG (27-34); Mean Platelet Volume 12.3 FL (9.6-12.0); Monocytes # 0.6 10*3/uL (0.11-0.8); Monocytes % 3.7 % (1.7-12.7); Neutrophils % 91.8 % (38.7-73.9); Platelet Count 96 T/CUMM (130-400); Red Blood Count 4.49 MC/CUMM (3.8-5.5); Red Cell Distribution Width 17.3 % (9.3-17.3); White Blood Count 16.4 T/CUMM (4-12)
[2018-08-27 06:12] LABS: Calcium 8.9 MG/DL (8.5-10.1); Osmolality,Calculated 292.5 MOS/KG (273-304); Potassium 4.6 MMOL/L (3.5-5.1)
[2018-08-27 06:33] LABS: Band Neutrophils 5 % (0-10); Eosinophils 1 % (0-10); Lymphocytes 4 % (20-55); Nucleated Red Blood Cells 1 (0-5); Platelet Estimate Decreased; Segmented Neutrophils 87 % (50-85); Total Cells Counted 100
[2018-08-27 06:34] LABS: Anisocytosis Slight
[2018-08-27] MEDS: methylPREDNISolone SOD SUC 40 MG/1 ML VIAL IV SCH ×3 (08:53→23:04)
[2018-08-27] MEDS: ASPIRIN CHEW 81 MG TABLET PO SCH (08:54)
[2018-08-27] MEDS: CLOPIDOGREL 75 MG TABLET PO SCH (08:54)
[2018-08-27] MEDS: FUROSEMIDE 40 MG/4 ML VIAL IV SCH ×2 (08:54→20:07)
[2018-08-27] MEDS: VANCOMYCIN INJ 1,250 MG in SODIUM CHLORIDE 0.9% 250 ML IV SCH (11:09)
[2018-08-27] MEDS: ROSUVASTATIN 20 MG TABLET PO SCH (20:07)
[2018-08-27] MEDS ORDERED: VANCOMYCIN INJ 1,250 MG in SODIUM CHLORIDE 0.9% 250 ML IV SCH (22:00)
[2018-08-28] MEDS: ALBUTEROL/IPRATROPIUM 3 ML NEB RESP TX SCH ×6 (02:19→22:38)
[2018-08-28 05:18] LABS: ABG Base Excess 6.2 MMOL/L (-2.5-2.5); ABG Oxygen Saturation 96.4 % (95-100); ABG PCO2 40.2 MM HG (35-48); ABG PH 7.483 (7.35-7.45); ABG PO2 86.8 MM HG (80-95); ABG TCO2 24.8 MMOL/L (23-27); Allen Test Positive; Pt O2 Delivery Device Ventilator
[2018-08-28] MEDS: INSULIN REGULAR 100 UNIT/ML SUBCUT SCH ×4 (05:44→23:43)
[2018-08-28 06:14] LABS: Basophils % 0.1 % (0.0-0.8); Hematocrit 51.2 VOL% (35.7-47.0); Hemoglobin 16.9 GM/DL (12.0-16.0); Immature Granulocytes % 1.8 %; Immature Granulocytes Absolute 0.28 #; Lymphocytes # 0.6 10*3/uL (1.4-4.0); Lymphocytes % 3.6 % (21.3-54.2); Mean Corpuscular Hemoglobin 35 PG (27-34); Mean Corpuscular Volume 105.6 FL (87-102); Monocytes # 0.7 10*3/uL (0.11-0.8); Monocytes % 4.5 % (1.7-12.7); Neutrophils # 14.3 10*3/uL (1.4-7.4); Platelet Count 115 T/CUMM (130-400); Red Blood Count 4.85 MC/CUMM (3.8-5.5); Red Cell Distribution Width 17.3 % (9.3-17.3); White Blood Count 15.9 T/CUMM (4-12)
[2018-08-28 06:36] LABS: Calcium 8.7 MG/DL (8.5-10.1); Osmolality,Calculated 290.8 MOS/KG (273-304); Potassium 5.1 MMOL/L (3.5-5.1)
[2018-08-28 06:42] LABS: Prealbumin 48.9 MG/DL (20-40)
[2018-08-28 07:01] LABS: Hypochromasia 1+; Lymphocytes 2 % (20-55); Nucleated Red Blood Cells 1 (0-5); Platelet Estimate Decreased; Segmented Neutrophils 92 % (50-85); Total Cells Counted 100
[2018-08-28 07:02] LABS: Macrocytosis Slight
[2018-08-28] MEDS: methylPREDNISolone SOD SUC 40 MG/1 ML VIAL IV SCH ×3 (09:05→23:44)
[2018-08-28] MEDS: FUROSEMIDE 40 MG/4 ML VIAL IV SCH (09:05)
[2018-08-28] MEDS: ASPIRIN CHEW 81 MG TABLET PO SCH (10:10)
[2018-08-28] MEDS: CLOPIDOGREL 75 MG TABLET PO SCH (10:10)
[2018-08-28] MEDS ORDERED: ONDANSETRON 4 MG/2 ML VIAL IV PRN (10:20)
[2018-08-28] MEDS: fentaNYL INJ 1,250 MCG in SODIUM CHLORIDE 0.9% 225 ML IV PRN (13:05)
[2018-08-28] MEDS: FUROSEMIDE 40 MG TABLET PO SCH (16:10)
[2018-08-28] MEDS: MIDAZOLAM 100 MG in SODIUM CHLORIDE 0.9% 80 ML IV PRN (18:20)
[2018-08-28] MEDS: ROSUVASTATIN 20 MG TABLET PO SCH (20:03)
[2018-08-29] MEDS: ALBUTEROL/IPRATROPIUM 3 ML NEB RESP TX SCH ×5 (02:45→19:34)
[2018-08-29 04:06] LABS: ABG Base Excess 5.6 MMOL/L (-2.5-2.5); ABG HCO3 28.5 MMOL/L (20-26); ABG Oxygen Saturation 98.1 % (95-100); ABG PCO2 35.9 MM HG (35-48); ABG PH 7.517 (7.35-7.45); ABG PO2 118.9 MM HG (80-95); ABG TCO2 29.6 MMOL/L (23-27); Allen Test Positive; Pt O2 Delivery Device Ventilator
[2018-08-29 04:44] LABS: Basophils % 0.1 % (0.0-0.8); Eosinophils % 0.1 % (0.00-10.9); Hematocrit 48.1 VOL% (35.7-47.0); Hemoglobin 15.9 GM/DL (12.0-16.0); Immature Granulocytes Absolute 0.14 #; Lymphocytes # 0.5 10*3/uL (1.4-4.0); Mean Corpuscular HGB Conc 33.1 GM/DL (32-36); Mean Corpuscular Hemoglobin 35 PG (27-34); Mean Corpuscular Volume 104.6 FL (87-102); Mean Platelet Volume 13.3 FL (9.6-12.0); Monocytes # 0.6 10*3/uL (0.11-0.8); Monocytes % 4.6 % (1.7-12.7); Neutrophils # 12.3 10*3/uL (1.4-7.4); Neutrophils % 90.2 % (38.7-73.9); Platelet Count 107 T/CUMM (130-400); Red Cell Distribution Width 17.1 % (9.3-17.3); White Blood Count 13.6 T/CUMM (4-12)
[2018-08-29 05:13] LABS: Lymphocytes 5 % (20-55); Segmented Neutrophils 89 % (50-85); Total Cells Counted 100
[2018-08-29 05:14] LABS: Anisocytosis 1+; Hypochromasia Slight; Microcytosis Slight; Platelet Estimate Decreased
[2018-08-29] MEDS: INSULIN REGULAR 100 UNIT/ML SUBCUT SCH ×3 (05:34→18:00)
[2018-08-29 05:42] LABS: Calcium 8.8 MG/DL (8.5-10.1); Osmolality,Calculated 291.8 MOS/KG (273-304); Potassium 4.6 MMOL/L (3.5-5.1)
[2018-08-29] MEDS: methylPREDNISolone SOD SUC 40 MG/1 ML VIAL IV SCH ×2 (08:35→17:15)
[2018-08-29] MEDS: FUROSEMIDE 40 MG TABLET PO SCH ×2 (08:35→17:09)
[2018-08-29] MEDS: CEFUROXIME 250 MG TABLET PER TUBE SCH ×2 (08:35→20:51)
[2018-08-29] MEDS: ASPIRIN CHEW 81 MG TABLET PO SCH (08:35)
[2018-08-29] MEDS: CLOPIDOGREL 75 MG TABLET PO SCH (08:35)
[2018-08-29] MEDS: MIDAZOLAM 100 MG in SODIUM CHLORIDE 0.9% 80 ML IV PRN (17:00)
[2018-08-29] MEDS: ROSUVASTATIN 20 MG TABLET PO SCH (20:51)
[2018-08-29] MEDS: fentaNYL INJ 1,250 MCG in SODIUM CHLORIDE 0.9% 225 ML IV PRN (21:47)
[2018-08-30] MEDS: INSULIN REGULAR 100 UNIT/ML SUBCUT SCH ×4 (00:04→18:21)
[2018-08-30] MEDS: methylPREDNISolone SOD SUC 40 MG/1 ML VIAL IV SCH ×3 (00:10→16:42)
[2018-08-30] MEDS: ALBUTEROL/IPRATROPIUM 3 ML NEB RESP TX SCH ×7 (00:59→23:58)
[2018-08-30 04:12] LABS: ABG Base Excess 6.3 MMOL/L (-2.5-2.5); ABG HCO3 30.1 MMOL/L (20-26); ABG Oxygen Saturation 95.6 % (95-100); ABG PCO2 34.6 MM HG (35-48); ABG PO2 77.5 MM HG (80-95); ABG TCO2 24.3 MMOL/L (23-27); Allen Test Positive; Pt O2 Delivery Device Ventilator
[2018-08-30 05:31] LABS: Basophils % 0.2 % (0.0-0.8); Eosinophils % 0.1 % (0.00-10.9); Hemoglobin 14.4 GM/DL (12.0-16.0); Immature Granulocytes % 0.9 %; Lymphocytes # 0.9 10*3/uL (1.4-4.0); Lymphocytes % 8.2 % (21.3-54.2); Mean Corpuscular HGB Conc 32.7 GM/DL (32-36); Mean Corpuscular Hemoglobin 35 PG (27-34); Mean Corpuscular Volume 105.5 FL (87-102); Mean Platelet Volume 12.9 FL (9.6-12.0); Monocytes # 0.6 10*3/uL (0.11-0.8); Monocytes % 4.9 % (1.7-12.7); Neutrophils # 9.8 10*3/uL (1.4-7.4); Neutrophils % 85.7 % (38.7-73.9); Platelet Count 103 T/CUMM (130-400); Red Blood Count 4.17 MC/CUMM (3.8-5.5); Red Cell Distribution Width 16.5 % (9.3-17.3); White Blood Count 11.4 T/CUMM (4-12)
[2018-08-30 06:17] LABS: Calcium 7.9 MG/DL (8.5-10.1); Osmolality,Calculated 299.5 MOS/KG (273-304); Potassium 4.3 MMOL/L (3.5-5.1)
[2018-08-30] MEDS ORDERED: SODIUM CHLORIDE 0.45% 1,000 ML IV SCH (09:30)
[2018-08-30] MEDS: ASPIRIN CHEW 81 MG TABLET PO SCH (09:44)
[2018-08-30] MEDS: CLOPIDOGREL 75 MG TABLET PO SCH (09:44)
[2018-08-30] MEDS: CEFUROXIME 250 MG TABLET PER TUBE SCH ×2 (09:44→21:48)
[2018-08-30] MEDS: fentaNYL INJ 1,250 MCG in SODIUM CHLORIDE 0.9% 225 ML IV PRN (14:00)
[2018-08-30] MEDS: MIDAZOLAM 100 MG in SODIUM CHLORIDE 0.9% 80 ML IV PRN (17:45)
[2018-08-30] MEDS: ROSUVASTATIN 20 MG TABLET PO SCH (21:49)
[2018-08-31] MEDS: methylPREDNISolone SOD SUC 40 MG/1 ML VIAL IV SCH ×3 (00:18→16:46)
[2018-08-31] MEDS: INSULIN REGULAR 100 UNIT/ML SUBCUT SCH ×4 (00:18→19:11)
[2018-08-31] MEDS: ALBUTEROL/IPRATROPIUM 3 ML NEB RESP TX SCH ×6 (03:40→22:17)
[2018-08-31 05:36] LABS: ABG Base Excess 3.6 MMOL/L (-2.5-2.5); ABG Oxygen Saturation 89.2 % (95-100); ABG PCO2 37.1 MM HG (35-48); ABG PO2 59.6 MM HG (80-95); ABG TCO2 28.1 MMOL/L (23-27); Allen Test Positive; Pt O2 Delivery Device Ventilator
[2018-08-31 06:03] LABS: Blood Urea Nitrogen 64 MG/DL (7-18); Calcium 8.7 MG/DL (8.5-10.1); Glucose 114 MG/DL (74-106); Osmolality,Calculated 291.8 MOS/KG (273-304); Potassium 4.5 MMOL/L (3.5-5.1); Sodium 137 MMOL/L (136-145)
[2018-08-31 07:01] LABS: Basophils % 0.1 % (0.0-0.8); Hematocrit 43.8 VOL% (35.7-47.0); Hemoglobin 14.2 GM/DL (12.0-16.0); Immature Granulocytes % 1.2 %; Immature Granulocytes Absolute 0.18 #; Lymphocytes # 0.4 10*3/uL (1.4-4.0); Lymphocytes % 2.8 % (21.3-54.2); Mean Corpuscular HGB Conc 32.4 GM/DL (32-36); Mean Corpuscular Hemoglobin 35 PG (27-34); Mean Corpuscular Volume 106.8 FL (87-102); Mean Platelet Volume 13.3 FL (9.6-12.0); Monocytes # 0.4 10*3/uL (0.11-0.8); Monocytes % 2.7 % (1.7-12.7); Neutrophils # 13.8 10*3/uL (1.4-7.4); Neutrophils % 93.2 % (38.7-73.9); Platelet Count 112 T/CUMM (130-400); Red Cell Distribution Width 16.4 % (9.3-17.3); White Blood Count 14.8 T/CUMM (4-12)
[2018-08-31 07:25] LABS: Hypochromasia 1+; Lymphocytes 4 % (20-55); Microcytosis Slight; Platelet Estimate Decreased; Segmented Neutrophils 93 % (50-85); Total Cells Counted 100
[2018-08-31] MEDS ORDERED: amLODIPine 2.5 MG TABLET PO SCH (09:00)
[2018-08-31] MEDS: CLOPIDOGREL 75 MG TABLET PO SCH (09:06)
[2018-08-31] MEDS: CEFUROXIME 250 MG TABLET PER TUBE SCH ×2 (09:06→20:20)
[2018-08-31] MEDS: ASPIRIN CHEW 81 MG TABLET PO SCH (09:06)
[2018-08-31] MEDS: fentaNYL INJ 1,250 MCG in SODIUM CHLORIDE 0.9% 225 ML IV PRN ×3 (09:36→22:47)
[2018-08-31] MEDS: DESITIN 4OZ/NYSTATIN 15 GRAM MIXTURE PASTE TOP SCH ×2 (14:07→20:20)
[2018-08-31] MEDS: MIDAZOLAM 100 MG in SODIUM CHLORIDE 0.9% 80 ML IV PRN (16:37)
[2018-08-31] MEDS ORDERED: SODIUM CHLORIDE 0.9% 250 ML IV ONE (16:49)
[2018-08-31] MEDS: ROSUVASTATIN 20 MG TABLET PO SCH (20:20)
[2018-09-01] MEDS: INSULIN REGULAR 100 UNIT/ML SUBCUT SCH ×4 (00:31→19:07)
[2018-09-01] MEDS: methylPREDNISolone SOD SUC 40 MG/1 ML VIAL IV SCH ×3 (00:31→15:41)
[2018-09-01] MEDS: ALBUTEROL/IPRATROPIUM 3 ML NEB RESP TX SCH ×6 (04:02→23:52)
[2018-09-01 04:11] LABS: Allen Test Positive; Pt O2 Delivery Device Ventilator
[2018-09-01 04:12] LABS: ABG Base Excess 2.7 MMOL/L (-2.5-2.5); ABG HCO3 26.7 MMOL/L (20-26); ABG Oxygen Saturation 93.6 % (95-100); ABG PCO2 41.7 MM HG (35-48); ABG PH 7.425 (7.35-7.45); ABG PO2 71.8 MM HG (80-95)
[2018-09-01 04:28] LABS: Basophils % 0.1 % (0.0-0.8); Hematocrit 38.3 VOL% (35.7-47.0); Hemoglobin 12.5 GM/DL (12.0-16.0); Immature Granulocytes Absolute 0.14 #; Lymphocytes # 0.4 10*3/uL (1.4-4.0); Lymphocytes % 2.7 % (21.3-54.2); Mean Corpuscular HGB Conc 32.6 GM/DL (32-36); Mean Corpuscular Hemoglobin 35 PG (27-34); Mean Corpuscular Volume 108.5 FL (87-102); Mean Platelet Volume 13.4 FL (9.6-12.0); Monocytes # 0.3 10*3/uL (0.11-0.8); Monocytes % 1.9 % (1.7-12.7); Neutrophils # 12.8 10*3/uL (1.4-7.4); Neutrophils % 94.3 % (38.7-73.9); Platelet Count 99 T/CUMM (130-400); Red Blood Count 3.53 MC/CUMM (3.8-5.5); Red Cell Distribution Width 16.5 % (9.3-17.3); White Blood Count 13.6 T/CUMM (4-12)
[2018-09-01 04:29] LABS: Osmolality,Calculated 299.3 MOS/KG (273-304); Potassium 4.6 MMOL/L (3.5-5.1)
[2018-09-01 05:07] LABS: Hypochromasia Slight; Lymphocytes 2 % (20-55); Platelet Estimate Decreased; Segmented Neutrophils 98 % (50-85); Total Cells Counted 100
[2018-09-01] MEDS ORDERED: FUROSEMIDE 40 MG/4 ML VIAL IV ONE (08:39)
[2018-09-01] MEDS: CLOPIDOGREL 75 MG TABLET PO SCH (09:30)
[2018-09-01] MEDS: CEFUROXIME 250 MG TABLET PER TUBE SCH ×2 (09:30→20:28)
[2018-09-01] MEDS: ASPIRIN CHEW 81 MG TABLET PO SCH (09:30)
[2018-09-01] MEDS: DESITIN 4OZ/NYSTATIN 15 GRAM MIXTURE PASTE TOP SCH ×2 (09:50→20:28)
[2018-09-01] MEDS: fentaNYL INJ 1,250 MCG in SODIUM CHLORIDE 0.9% 225 ML IV PRN (14:18)
[2018-09-01] MEDS: MIDAZOLAM 100 MG in SODIUM CHLORIDE 0.9% 80 ML IV PRN (17:48)
[2018-09-01] MEDS: ROSUVASTATIN 20 MG TABLET PO SCH (20:28)
[2018-09-02] MEDS: methylPREDNISolone SOD SUC 40 MG/1 ML VIAL IV SCH ×3 (00:27→16:46)
[2018-09-02] MEDS: INSULIN REGULAR 100 UNIT/ML SUBCUT SCH ×4 (00:27→18:34)
[2018-09-02 03:47] LABS: Allen Test Positive; Pt O2 Delivery Device Ventilator
[2018-09-02 03:48] LABS: ABG Base Excess 4.5 MMOL/L (-2.5-2.5); ABG HCO3 28.3 MMOL/L (20-26); ABG Oxygen Saturation 91.4 % (95-100); ABG PCO2 40.3 MM HG (35-48); ABG PO2 61.8 MM HG (80-95); ABG TCO2 24.9 MMOL/L (23-27)
[2018-09-02] MEDS: ALBUTEROL/IPRATROPIUM 3 ML NEB RESP TX SCH ×6 (03:53→22:38)
[2018-09-02 04:40] LABS: Basophils % 0.2 % (0.0-0.8); Hematocrit 43.8 VOL% (35.7-47.0); Hemoglobin 14.1 GM/DL (12.0-16.0); Immature Granulocytes % 1.6 %; Immature Granulocytes Absolute 0.33 #; Lymphocytes # 0.6 10*3/uL (1.4-4.0); Mean Corpuscular HGB Conc 32.2 GM/DL (32-36); Mean Corpuscular Hemoglobin 35 PG (27-34); Mean Platelet Volume 12.5 FL (9.6-12.0); Monocytes # 0.5 10*3/uL (0.11-0.8); Monocytes % 2.6 % (1.7-12.7); Neutrophils # 19.6 10*3/uL (1.4-7.4); Neutrophils % 92.6 % (38.7-73.9); Platelet Count 134 T/CUMM (130-400); Red Blood Count 4.02 MC/CUMM (3.8-5.5); Red Cell Distribution Width 16.2 % (9.3-17.3); White Blood Count 21.2 T/CUMM (4-12)
[2018-09-02 04:55] LABS: Calcium 8.5 MG/DL (8.5-10.1); Osmolality,Calculated 294.4 MOS/KG (273-304); Potassium 4.8 MMOL/L (3.5-5.1)
[2018-09-02 05:07] LABS: Lymphocytes 5 % (20-55); Segmented Neutrophils 93 % (50-85); Total Cells Counted 100
[2018-09-02 05:08] LABS: Anisocytosis 1+; Hypochromasia 1+; Microcytosis 1+; Platelet Estimate Adequate
[2018-09-02] MEDS: fentaNYL INJ 1,250 MCG in SODIUM CHLORIDE 0.9% 225 ML IV PRN ×2 (05:10→20:20)
[2018-09-02] MEDS: FLUCONAZOLE INJ 100 MG in IV BAG 1 EACH IV SCH (08:37)
[2018-09-02] MEDS: ASPIRIN CHEW 81 MG TABLET PO SCH (08:38)
[2018-09-02] MEDS: CLOPIDOGREL 75 MG TABLET PO SCH (08:38)
[2018-09-02] MEDS: CEFUROXIME 250 MG TABLET PER TUBE SCH ×2 (08:38→20:21)
[2018-09-02] MEDS: FUROSEMIDE 40 MG/4 ML VIAL IV SCH (09:04)
[2018-09-02] MEDS: DESITIN 4OZ/NYSTATIN 15 GRAM MIXTURE PASTE TOP SCH ×2 (09:06→20:21)
[2018-09-02] MEDS ORDERED: METOPROLOL TARTRATE 25 MG TABLET PO PRN (10:58)
[2018-09-02] MEDS ORDERED: hydrALAZINE 25 MG TABLET PO PRN (10:59)
[2018-09-02] MEDS: MIDAZOLAM 100 MG in SODIUM CHLORIDE 0.9% 80 ML IV PRN (11:58)
[2018-09-02] MEDS: cloNIDine 0.3 MG/24 HR PATCH TRANSDERM SCH ×2 (13:30→20:10)
[2018-09-02] MEDS: ROSUVASTATIN 20 MG TABLET PO SCH (20:21)
[2018-09-03] MEDS: INSULIN REGULAR 100 UNIT/ML SUBCUT SCH ×4 (00:28→18:37)
[2018-09-03] MEDS: methylPREDNISolone SOD SUC 40 MG/1 ML VIAL IV SCH ×3 (00:31→18:25)
[2018-09-03] MEDS: ALBUTEROL/IPRATROPIUM 3 ML NEB RESP TX SCH ×6 (02:00→23:37)
[2018-09-03 02:49] LABS: ABG Base Excess 3.8 MMOL/L (-2.5-2.5); ABG HCO3 27.5 MMOL/L (20-26); ABG Oxygen Saturation 87.7 % (95-100); ABG PCO2 40.7 MM HG (35-48); ABG PH 7.447 (7.35-7.45); ABG PO2 55.7 MM HG (80-95); ABG TCO2 24.3 MMOL/L (23-27); Allen Test Positive; Pt O2 Delivery Device Ventilator
[2018-09-03 04:17] LABS: Basophils % 0.1 % (0.0-0.8); Hematocrit 40.6 VOL% (35.7-47.0); Hemoglobin 13.3 GM/DL (12.0-16.0); Immature Granulocytes % 2.1 %; Immature Granulocytes Absolute 0.35 #; Lymphocytes # 0.4 10*3/uL (1.4-4.0); Lymphocytes % 2.2 % (21.3-54.2); Mean Corpuscular HGB Conc 32.8 GM/DL (32-36); Mean Corpuscular Hemoglobin 35 PG (27-34); Mean Corpuscular Volume 106.8 FL (87-102); Mean Platelet Volume 12.2 FL (9.6-12.0); Monocytes # 0.3 10*3/uL (0.11-0.8); Monocytes % 1.5 % (1.7-12.7); NRBC # 0.02 10*3/uL; Neutrophils % 94.1 % (38.7-73.9); Red Cell Distribution Width 16.2 % (9.3-17.3)
[2018-09-03 04:25] LABS: Platelet Count 95 T/CUMM (130-400)
[2018-09-03 04:33] LABS: Calcium 8.6 MG/DL (8.5-10.1); Osmolality,Calculated 296.3 MOS/KG (273-304); Potassium 4.6 MMOL/L (3.5-5.1)
[2018-09-03] MEDS: MIDAZOLAM 100 MG in SODIUM CHLORIDE 0.9% 80 ML IV PRN (04:59)
[2018-09-03 05:00] LABS: Band Neutrophils 2 % (0-10); Lymphocytes 2 % (20-55); Platelet Estimate Decreased; Segmented Neutrophils 95 % (50-85); Total Cells Counted 100
[2018-09-03 05:01] LABS: Polychromasia Few
[2018-09-03] MEDS: CLOPIDOGREL 75 MG TABLET PO SCH (08:29)
[2018-09-03] MEDS: CEFUROXIME 250 MG TABLET PER TUBE SCH ×2 (08:29→20:20)
[2018-09-03] MEDS: FUROSEMIDE 40 MG/4 ML VIAL IV SCH (08:29)
[2018-09-03] MEDS: ASPIRIN CHEW 81 MG TABLET PO SCH (08:29)
[2018-09-03] MEDS: FLUCONAZOLE INJ 100 MG in IV BAG 1 EACH IV SCH (08:30)
[2018-09-03] MEDS: fentaNYL INJ 1,250 MCG in SODIUM CHLORIDE 0.9% 225 ML IV PRN ×2 (08:30→21:20)
[2018-09-03] MEDS: DESITIN 4OZ/NYSTATIN 15 GRAM MIXTURE PASTE TOP SCH ×2 (08:32→20:21)
[2018-09-03] MEDS ORDERED: NOREPINEPHRINE 8 MG in SODIUM CHLORIDE 0.9% 242 ML IV PRN (18:07)
[2018-09-03] MEDS: ROSUVASTATIN 20 MG TABLET PO SCH (20:21)
[2018-09-04] MEDS: methylPREDNISolone SOD SUC 40 MG/1 ML VIAL IV SCH ×3 (00:45→15:35)
[2018-09-04] MEDS: INSULIN REGULAR 100 UNIT/ML SUBCUT SCH ×4 (00:45→17:59)
[2018-09-04 03:03] LABS: ABG Base Excess 4.5 MMOL/L (-2.5-2.5); ABG HCO3 28.5 MMOL/L (20-26); ABG PCO2 40.2 MM HG (35-48); ABG PH 7.468 (7.35-7.45); ABG PO2 69.5 MM HG (80-95); ABG TCO2 29.7 MMOL/L (23-27); Allen Test Positive; Pt O2 Delivery Device Ventilator
[2018-09-04] MEDS: ALBUTEROL/IPRATROPIUM 3 ML NEB RESP TX SCH ×6 (03:15→22:52)
[2018-09-04 05:47] LABS: Basophils % 0.2 % (0.0-0.8); Hematocrit 41.7 VOL% (35.7-47.0); Hemoglobin 13.5 GM/DL (12.0-16.0); Immature Granulocytes % 1.7 %; Immature Granulocytes Absolute 0.34 #; Lymphocytes # 0.3 10*3/uL (1.4-4.0); Lymphocytes % 1.4 % (21.3-54.2); Mean Corpuscular HGB Conc 32.4 GM/DL (32-36); Mean Corpuscular Hemoglobin 35 PG (27-34); Mean Corpuscular Volume 108.9 FL (87-102); Mean Platelet Volume 12.8 FL (9.6-12.0); Monocytes # 0.3 10*3/uL (0.11-0.8); Monocytes % 1.7 % (1.7-12.7); Neutrophils # 19.2 10*3/uL (1.4-7.4); Platelet Count 108 T/CUMM (130-400); Red Blood Count 3.83 MC/CUMM (3.8-5.5); Red Cell Distribution Width 16.4 % (9.3-17.3); White Blood Count 20.2 T/CUMM (4-12)
[2018-09-04 06:01] LABS: Calcium 8.5 MG/DL (8.5-10.1); Osmolality,Calculated 298.4 MOS/KG (273-304); Potassium 4.9 MMOL/L (3.5-5.1)
[2018-09-04 06:05] LABS: Prealbumin 43.2 MG/DL (20-40)
[2018-09-04 06:08] LABS: Platelet Estimate Decreased; Polychromasia Few; Segmented Neutrophils 99 % (50-85); Total Cells Counted 100
[2018-09-04] MEDS: MIDAZOLAM 100 MG in SODIUM CHLORIDE 0.9% 80 ML IV PRN (06:36)
[2018-09-04] MEDS: CEFUROXIME 250 MG TABLET PER TUBE SCH ×2 (08:30→21:49)
[2018-09-04] MEDS: ASPIRIN CHEW 81 MG TABLET PO SCH (08:30)
[2018-09-04] MEDS: FLUCONAZOLE INJ 100 MG in IV BAG 1 EACH IV SCH (08:30)
[2018-09-04] MEDS: CLOPIDOGREL 75 MG TABLET PO SCH (08:30)
[2018-09-04] MEDS: DESITIN 4OZ/NYSTATIN 15 GRAM MIXTURE PASTE TOP SCH ×2 (08:31→21:49)
[2018-09-04] MEDS: FUROSEMIDE 40 MG/4 ML VIAL IV SCH (08:34)
[2018-09-04] MEDS: fentaNYL INJ 1,250 MCG in SODIUM CHLORIDE 0.9% 225 ML IV PRN ×2 (11:03→22:48)
[2018-09-04] MEDS: ROSUVASTATIN 20 MG TABLET PO SCH (21:49)
[2018-09-05] MEDS: INSULIN REGULAR 100 UNIT/ML SUBCUT SCH ×3 (00:32→11:49)
[2018-09-05] MEDS: methylPREDNISolone SOD SUC 40 MG/1 ML VIAL IV SCH ×2 (00:33→08:50)
[2018-09-05] MEDS: ALBUTEROL/IPRATROPIUM 3 ML NEB RESP TX SCH ×7 (02:49→22:59)
[2018-09-05] MEDS: MIDAZOLAM 100 MG in SODIUM CHLORIDE 0.9% 80 ML IV PRN (04:30)
[2018-09-05 04:34] LABS: Basophils % 0.1 % (0.0-0.8); Eosinophils % 0.1 % (0.00-10.9); Hemoglobin 11.7 GM/DL (12.0-16.0); Immature Granulocytes % 1.2 %; Immature Granulocytes Absolute 0.14 #; Lymphocytes # 0.3 10*3/uL (1.4-4.0); Lymphocytes % 2.2 % (21.3-54.2); Mean Corpuscular HGB Conc 31.6 GM/DL (32-36); Mean Corpuscular Hemoglobin 35 PG (27-34); Mean Corpuscular Volume 110.8 FL (87-102); Mean Platelet Volume 12.4 FL (9.6-12.0); Monocytes # 0.3 10*3/uL (0.11-0.8); Monocytes % 2.3 % (1.7-12.7); Neutrophils # 11.4 10*3/uL (1.4-7.4); Neutrophils % 94.1 % (38.7-73.9); Red Blood Count 3.34 MC/CUMM (3.8-5.5); Red Cell Distribution Width 16.5 % (9.3-17.3); White Blood Count 12.1 T/CUMM (4-12)
[2018-09-05 04:43] LABS: Platelet Count 78 T/CUMM (130-400)
[2018-09-05 04:50] LABS: Calcium 8.5 MG/DL (8.5-10.1); Osmolality,Calculated 303.3 MOS/KG (273-304); Potassium 4.7 MMOL/L (3.5-5.1)
[2018-09-05 04:54] LABS: ABG Base Excess 5.5 MMOL/L (-2.5-2.5); ABG HCO3 29.7 MMOL/L (20-26); ABG Oxygen Saturation 89.6 % (95-100); ABG PCO2 41.5 MM HG (35-48); ABG PH 7.472 (7.35-7.45); ABG PO2 59.5 MM HG (80-95); ABG TCO2 30.9 MMOL/L (23-27); Allen Test Positive; Pt O2 Delivery Device Ventilator
[2018-09-05 06:20] LABS: Lymphocytes 4 % (20-55); Metamyelocytes 1 %; Platelet Estimate Decreased; Polychromasia Few; Segmented Neutrophils 93 % (50-85); Total Cells Counted 100
[2018-09-05] MEDS: FUROSEMIDE 40 MG/4 ML VIAL IV SCH (08:47)
[2018-09-05] MEDS: ASPIRIN CHEW 81 MG TABLET PO SCH (08:47)
[2018-09-05] MEDS: DESITIN 4OZ/NYSTATIN 15 GRAM MIXTURE PASTE TOP SCH ×2 (08:47→22:59)
[2018-09-05] MEDS: CLOPIDOGREL 75 MG TABLET PO SCH (08:47)
[2018-09-05] MEDS: FLUCONAZOLE INJ 100 MG in IV BAG 1 EACH IV SCH (08:47)
[2018-09-05] MEDS: CEFUROXIME 250 MG TABLET PER TUBE SCH (10:07)
[2018-09-05] MEDS ORDERED: MORPHINE 4 MG/1 ML VIAL IV ONE ×2 (11:37→12:51)
[2018-09-05] MEDS: MORPHINE 4 MG/1 ML VIAL IV PRN ×6 (14:02→23:36)
[2018-09-05] MEDS: LORazepam 2 MG/1 ML VIAL IV PRN ×2 (17:26→20:55)
[2018-09-06] MEDS: LORazepam 2 MG/1 ML VIAL IV PRN ×3 (01:12→09:06)
[2018-09-06] MEDS: MORPHINE 4 MG/1 ML VIAL IV PRN ×3 (03:05→12:34)
[2018-09-06] MEDS: ALBUTEROL/IPRATROPIUM 3 ML NEB RESP TX SCH ×3 (03:11→14:16)
[2018-09-06] MEDS: DESITIN 4OZ/NYSTATIN 15 GRAM MIXTURE PASTE TOP SCH (08:13)
[2018-09-06] MEDS ORDERED: hydrALAZINE 20 MG/1 ML VIAL IV PRN (08:55)
[2018-09-06 13:49] VITALS: BP 109/61
== END 2018-09-06 15:20 | disposition hospice, inpatient (51) | DRG 720 ==
LOC: N.ICU 20:28 → SUATTDRO 20:28 → N.4E 09-06 12:02
PROVIDERS: ADMIT Internal Medicine; ATTEND Internal Medicine

== ENCOUNTER 2018-09-06 15:23 | Inpatient (IN) ==
[2018-09-06] MEDS ORDERED: LORazepam 2 MG/1 ML VIAL IV PRN ×2 (15:48→16:13)
[2018-09-06] MEDS ORDERED: LORazepam 2 MG/1 ML VIAL IV SCH (16:00)
[2018-09-06] MEDS ORDERED: MORPHINE 4 MG/1 ML VIAL IV SCH (16:00)
[2018-09-06] MEDS ORDERED: fentaNYL 25 MCG/HR PATCH TRANSDERM SCH (16:00)
[2018-09-06] MEDS ORDERED: PROMETHAZINE INJ 25 MG in SODIUM CHLORIDE 0.9% 50 ML IV PRN (16:06)
[2018-09-06] MEDS ORDERED: ALBUTEROL/IPRATROPIUM 3 ML NEB RESP TX PRN (16:09)
[2018-09-06] MEDS ORDERED: ACETAMINOPHEN 650 MG SUPP RECTAL PRN (16:11)
[2018-09-06] MEDS: MORPHINE 4 MG/1 ML VIAL IV PRN ×2 (16:23→17:49)
[2018-09-06] MEDS ORDERED: DESITIN 4OZ/NYSTATIN 15 GRAM MIXTURE PASTE TOP SCH (21:00)
[2018-09-09] MEDS ORDERED: cloNIDine 0.3 MG/24 HR PATCH TRANSDERM SCH (09:00)
== END 2018-09-06 18:40 | disposition expired | DRG 951 ==
LOC: N.4E 15:23
PROVIDERS: ADMIT Internal Medicine; ATTEND Internal Medicine